=== PATIENT | female | born 1970 | race American Indian/Alaskan Native ===

== ENCOUNTER 2017-10-28 21:12 | Observation (INO) | payer BC ==
[2017-10-29 01:24] VITALS: BMI 21.5
[2017-10-29] MEDS ORDERED: Morphine 4 mg/ml ISec IVP STA ×2 (01:28→04:57)
[2017-10-29] MEDS ORDERED: Sodium Chloride 0.9% 1,000 ML IV STA ×2 (01:28→06:26)
--- NOTE | 2017-10-29 01:31 | ED PDOC ---
Arrival/HPI - General Time Seen by Provider: 10/28/17 23:46 Historian: Patient - History of Present Illness Narrative History of Present Illness (Text): 10/29/17 01:34 A 47 year old female, with no significant past medical history, presents to the emergency department complaining of abdominal pain. Patient reports she currently takes Clonazapam, Vortioxetine, and Seriquel. Patient denies any other complaints at this time. No PMD Past Medical History - Provider Review Nursing Documentation Reviewed: Yes Family/Social History - Physician Review Nursing Documentation Reviewed: Yes Family/Social History: No Known Family HX Allergies/Home Meds Allergies/Adverse Reactions: Allergies No Known Allergies Allergy (Unverified 10/29/17 01:24) Review of Systems - Physician Review All systems were reviewed & negative as marked: Yes - Review of Systems Constitutional: absent: Fevers Gastrointestinal: Abdominal Pain Physical Exam Vital Signs Temp Pulse Resp BP Pulse Ox 10/29/17 04:23 66 18 128/85 100 10/29/17 03:31 98.2 F 71 18 126/72 100 - Systems Exam Head: Present: Atraumatic, Normocephalic Pupils: Present: PERRL Extroacular Muscles: Present: EOMI Conjunctiva: Present: Normal Mouth: Present: Moist Mucous Membranes Neck: Present: Normal Range of Motion Respiratory/Chest: Present: Clear to Auscultation, Good Air Exchange. No: Respiratory Distress, Accessory Muscle Use Cardiovascular: Present: Regular Rate and Rhythm, Normal S1, S2. No: Murmurs Abdomen: Present: Tenderness. No: Distention, Peritoneal Signs Back: Present: Normal Inspection Upper Extremity: Present: Normal Inspection. No: Cyanosis, Edema Lower Extremity: Present: Normal Inspection. No: Edema Neurological: Present: GCS=15, CN II-XII Intact, Speech Normal Skin: Present: Warm, Dry, Normal Color. No: Rashes Psychiatric: Present: Alert, Oriented x 3, Normal Insight, Normal Concentration Medical Decision Making ED Course and Treatment: 10/29/17 01:36 Impression: 47 year old female with abdominal pain. Plan: -- Abd/Pelvis CT -- Labs -- Venous Blood Gas -- Morphine -- Zofran -- Pepcid -- IV Fluids -- Blood Culture -- Urine Culture -- Urinalysis -- Reassess and disposition Progress Notes: 10/29/2017 04:58 Abd/Pelvis CT IMPRESSION: 1. No evidence of bowel obstruction. No pericolonic inflammatory stranding or wall thickening seen. 2. Focally dilated pancreatic duct with atrophy of the pancreatic neck and proximal body. No discrete mass is seen but consider multiphase MRI to further assess if prior studies cannot confirm stability. 3. Indeterminate 1.7 cm right renal lesion. This could also be assessed with pre -and post contrast MRI or ultrasound. 4. Multiple enhancing uterine fibroids, measuring up to 2.4 cm. 5. 9 mm cystic density in the proximal urethra suspicious for a urethral diverticulum. Dictator: Joseph Mott MD - Lab Interpretations Lab Results: 10/29/17 02:25 10/29/17 02:25 Lab Results 10/29/17 02:34: Urine Color Yellow, Urine Appearance Sl cloudy, Urine pH 6.0, Ur Specific [place] >= 1.030, Urine Protein 30 H, Urine Glucose (UA) Negative, Urine Ketones 15 H, Urine Blood Small H, Urine Nitrate Negative, Urine Bilirubin Small H, Urine Urobilinogen 0.2, Ur Leukocyte Esterase Moderate H, Urine RBC 5 - 10, Urine WBC Tntc, Ur Epithelial Cells 3 - 4, Urine Bacteria Many 10/29/17 02:25: Sodium 141, Chloride 104, Potassium 3.8, Carbon Dioxide 26, Anion Gap 14, BUN 10, Creatinine 0.7, Est GFR ( Amer) > 60, Est GFR (Non- Af Amer) > 60, Random Glucose 103, Calcium 10.4, Total Bilirubin 0.6, AST 68 H, ALT 21, Alkaline Phosphatase 68, Total Protein 8.7 H, Albumin 4.8, Globulin 3.9 , Albumin/Globulin Ratio 1.2, Lipase 36 10/29/17 02:25: pO2 42, VBG pH 7.33, VBG pCO2 55.0, VBG HCO3 29.0 H, VBG Total CO2 30.7 H, VBG O2 Sat (Calc) 72.4 H, VBG Base Excess 1.9, VBG Potassium 3.6, Sodium 140.0, Chloride 107.0, Glucose 102, Lactate 1.0, FiO2 21.0, Venous Blood Potassium 3.6 10/29/17 02:25: PT 11.7, INR 1.03 10/29/17 02:25: WBC 6.8, RBC 3.98, Hgb 10.8 L, Hct 33.6 L, MCV 84.4, MCH 27.1, MCHC 32.1, RDW 16.7 H, Plt Count 277, MPV 8.5, Gran % 56.2, Lymph % (Auto) 36.4 H, [place] % (Auto) 6.8 H, Eos % (Auto) 0.3 L, Baso % (Auto) 0.3, Gran # 3.79, Lymph # (Auto) 2.5, [place] # (Auto) 0.5, Eos # (Auto) 0.0, Baso # (Auto) 0.02 I have reviewed the lab results: Yes - RAD Interpretation Radiology Orders: 10/29/17 01:28 ABD PELVIS PO & IV CONTRAST [CT] Stat - Medication Orders Current Medication Orders: Ceftriaxone Sodium (Rocephin 1 Gram Ivpb) 1 gm in 100 mls @ 200 mls/hr IVPB STAT STA PRN Reason: Protocol Stop: 10/29/17 05:26 Discontinued Medications Sodium Chloride (Sodium Chloride 0.9%) 1,000 mls @ 999 mls/hr IV .Q1H1M STA Stop: 10/29/17 02:28 Last Admin: 10/29/17 02:25 Dose: 999 mls/hr eMAR Start Stop Document 10/29/17 02:25 RD (Rec: 10/29/17 04:24 RD [id number]) Intravenous Solution Start Date 10/29/17 Start Time 02:25 End Date 10/29/17 End time 03:25 Total Infusion Time 60 Famotidine (Pepcid 20mg/50ml Premix) 20 mg in 50 mls @ 100 mls/hr IVPB STAT STA Stop: 10/29/17 02:01 Last Admin: 10/29/17 03:32 Dose: 100 mls/hr eMAR Start Stop Document 10/29/17 03:32 RD (Rec: 10/29/17 04:26 RD [id number]) Intravenous Solution Start Date 10/29/17 Start Time 03:32 End Date 10/29/17 End time 04:02 Total Infusion Time 30 Morphine Sulfate (Morphine) 4 mg IVP STAT STA Stop: 10/29/17 01:29 Last Admin: 10/29/17 02:30 Dose: 4 mg MAR Pain Assessment Document 10/29/17 02:30 RD (Rec: 10/29/17 04:25 RD [id number]) Pain Reassessment Is this a pain reassessment? No Sleep Is patient sleeping during reassessment? No Presence of Pain Presence of Pain Yes IVP Administration Document 10/29/17 02:30 RD (Rec: 10/29/17 04:25 RD [id number]) Charges for Administration # of IVP Administrations 1 Morphine Sulfate (Morphine) 4 mg IVP STAT STA Stop: 10/29/17 04:58 Ondansetron HCl (Zofran Inj) 4 mg IVP STAT STA Stop: 10/29/17 01:29 Last Admin: 10/29/17 02:25 Dose: 4 mg IVP Administration Document 10/29/17 02:25 RD (Rec: 10/29/17 04:25 RD [id number]) Charges for Administration # of IVP Administrations 1 Ondansetron HCl (Zofran Inj) 4 mg IVP STAT STA Stop: 10/29/17 04:58 - Scribe Statement The provider has reviewed the documentation as recorded by the Chris Blankenship Provider Scribe Provider Scribe Attestation: All medical record entries made by the Tonnyibamberly were at my direction and personally dictated by me. I have reviewed the chart and agree that the record accurately reflects my personal performance of the history, physical exam, medical decision making, and the department course for this patient. I have also personally directed, reviewed, and agree with the discharge instructions and disposition. Disposition/Present on Arrival - Present on Arrival Any Indicators Present on Arrival: No History of DVT/PE: No History of Uncontrolled Diabetes: No Urinary Catheter: No History of Decub. Ulcer: No History Surgical Site Infection Following: None - Disposition Have Diagnosis and Disposition been Completed?: Yes Diagnosis: Intractable abdominal pain, Pancreatic abnormality, UTI (urinary tract infection) Disposition: HOSPITALIZED Disposition Time: 05:26 Patient Plan: Admission Condition: FAIR Referrals: Gladys Ro MD [Primary Care Provider] - Follow up with primary
[2017-10-29] MEDS ORDERED: Famotidine 20mg/50ml 20 MG/50 ML BAG IVPB STA (01:32)
[2017-10-29] MEDS ORDERED: Iohexol 240 (50 ml) ONE (02:04)
[2017-10-29 02:47] LABS: VENOUS BLOOD GAS BASE EXCESS 1.9 mmol/L (0.0-2.0); VENOUS BLOOD GAS PO2 42 mm/Hg (30-55); VENOUS BLOOD PH 7.33 (7.32-7.43)
[2017-10-29 02:49] LABS: BASO # 0.02 K/mm3 (0.0-2.0); BASO % 0.3 % (0.0-3.0); EOS % 0.3 % (1.5-5.0); GRAN # 3.79 (1.4-6.5); GRAN % 56.2 % (50.0-68.0); HEMOGLOBIN 10.8 g/dL (12.0-16.0); INR 1.03; LYMPH # 2.5 (1.2-3.4); LYMPH % 36.4 % (22.0-35.0); MEAN CELL VOLUME 84.4 fl (80.0-105.0); MEAN CORPUSCULAR HEMOGLOBIN 27.1 pg (25.0-35.0); MEAN CORPUSCULAR HGB CONC 32.1 g/dl (31.0-37.0); MEAN PLATELET VOLUME 8.5 fl (7.0-11.0); MONO # 0.5 (0.1-0.6); MONO % 6.8 % (1.0-6.0); PROTHROMBIN TIME 11.7 SECONDS (9.4-12.5); RBC 3.98 10^6/uL (3.5-6.1); RED CELL DISTRIBUTION WIDTH 16.7 % (11.5-14.5); WHITE BLOOD COUNT 6.8 10^3/ul (4.5-11.0)
[2017-10-29 03:04] LABS: URINE BILIRUBIN SMALL (NEGATIVE); URINE BLOOD SMALL (NEGATIVE); URINE GLUCOSE (UA) NEGATIVE (NEGATIVE); URINE LEUKOCYTE ESTERASE MODERATE Leu/uL (NEGATIVE); URINE PROTEIN 30 mg/dL (<30 mg/dL); URINE UROBILINOGEN 0.2 E.U./dL (<1 E.U./dL)
[2017-10-29 03:09] LABS: URINE APPEARANCE SL CLOUDY (CLEAR); URINE COLOR YELLOW (YELLOW)
[2017-10-29 03:14] LABS: ALB/GLOB RATIO 1.2 (1.1-1.8); ALBUMIN 4.8 g/dL (3.0-4.8); BLOOD UREA NITROGEN 10 mg/dL (7-21); CALCIUM 10.4 mg/dL (8.4-10.5); GFR NON-AFRICAN AMERICAN > 60; LIPASE 36 U/L (23-300)
[2017-10-29 03:19] LABS: ALT/SGPT 21 U/L (7-56); AST/SGOT 68 U/L (14-36)
[2017-10-29 03:22] LABS: URINE BACTERIA MANY (NEG); URINE WBC TNTC /hpf (0-6)
[2017-10-29] MEDS ORDERED: Iohexol 300 100 ML IJ ONE (03:49)
[2017-10-29] MEDS ORDERED: Iohexol 350 MG/100 ML VIAL ONE (03:50)
[2017-10-29] MEDS ORDERED: cefTRIAXone 1 gm 1 GM/100 ML BAG IVPB STA (04:57)
[2017-10-29] MEDS: Sodium Chloride 0.9% 1,000 ML IV SCH ×2 (07:30→21:32)
--- NOTE | 2017-10-29 07:43 | CP.PCM.HP ---
<Dany Mcclulough - Last Filed: 10/29/17 07:52> History of Present Illness - History of Present Illness History of Present Illness: Dany Jamel DO PGY-1, H&P for hospitalist CC: abdominal pain This is a 47 year old AA female with PMH of hospitalization for ulcer in 1999, GERD, depression, iron deficiency anemia who presents with a 3 day history of abdominal pain with nausea, vomiting and diarrhea. Pt is a poor historian, and supplemental information is obtained from her sister Alfie, who is at bedside. Pt describes the abdominal pain as sharp, epigastric abdominal pain that radiates to the back, alleviated by leaning forward, worsened by laying on her back. Pt describes a 1 month history of diarrhea, 6 episodes of loose bowel movements per day, that started out as oily, light colored stool, nonbloody. Pt states that her bowel movements changes to dark, colored stools for the past 3 days. Pt was started on an iron pill by her PMD 2 weeks ago. Pt had 1 episode of vomiting yesterday (10/28/17), which was nonbloody. Pt states that she has had weakness and dizziness for the past month that has progressively worsened over the past 3 days. Symptoms are not associated with any foods. Pt denies LOC , falls, fever, chills, chest pain, dysuria, hematuria, shortness of breath, paresthesias, recent travel, recent illness, sick contacts. Pt endorses losing approximately 40 pounds since her fibroidectomy in september 2016. A 12-point ROS was reviewed and is otherwise unremarkable. PMD: Jia PMH: hospitalization for ulcer in 1999, GERD, depression, iron deficiency anemia PSH: Fibroids removed 09/2016 which required blood transfusion Meds: iron pills, multivitamins, Trintellix 10 mg daily, Seroquel 100 QHS, Prilosec OTC Allx: NKDA; abdominal pain from motrin FHx: Mother with HTN, and iron deficiency anemia, sister with iron deficiency anemia and atrial fibrillation; no history of cancer Social Hx: (+) drinks 2-3 22 ounce beers three times a week, (+) smokes 1-2 black and mild per day for the past 5 years, (-) illicit drug use Medical Claims Assistant: her menstrual period ended last week Present on Admission - Present on Admission Any Indicators Present on Admission: No Review of Systems - Review of Systems All systems: reviewed and no additional remarkable complaints except (as per HPI ) Past Patient History - Past Social History Smoking Status: Light Smoker < 10 Cigarettes Daily - PSYCHIATRIC Hx Anxiety: Yes Hx Bipolar Disorder: Yes Hx Depression: Yes Hx Substance Use: No Meds Allergies/Adverse Reactions: Allergies Allergy/AdvReac Type Severity Reaction Status Date / Time No Known Allergies Allergy Unverified 10/29/17 01:24 Physical Exam - Constitutional Appears: Non-toxic, No Acute Distress - Head Exam Head Exam: ATRAUMATIC, NORMAL INSPECTION - Eye Exam Eye Exam: EOMI, PERRL Additional comments: (+) conjunctival pallor - ENT Exam ENT Exam: Mucous Membranes Dry - Neck Exam Neck exam: Positive for: Normal Inspection - Respiratory Exam Respiratory Exam: Clear to Auscultation Bilateral, NORMAL BREATHING PATTERN. absent: Rales, Rhonchi, Wheezes - Cardiovascular Exam Cardiovascular Exam: REGULAR RHYTHM, +S1, +S2 - GI/Abdominal Exam GI & Abdominal Exam: Guarding (involuntary), Normal Bowel Sounds, Soft, Tenderness ((+) moderate epigastric tenderness). absent: Distended, Firm, Hernia, Mass, Pulsatile Mass, Rebound Additional comments: (-) murphys sign - Rectal Exam Rectal Exam: Deferred - Extremities Exam Extremities exam: Positive for: normal capillary refill, normal inspection, pedal pulses present. Negative for: calf tenderness, tenderness - Back Exam Back exam: paraspinal tenderness (lumbar paravertebral hypertonicity with tenderness). absent: rash noted, vertebral tenderness - Neurological Exam Neurological exam: Alert, Oriented x3 - Psychiatric Exam Psychiatric exam: Normal Affect, Normal Mood - Skin Skin Exam: Normal Color, Warm Results - Vital Signs Recent Vital Signs: Last Vital Signs Temp 98.2 F 10/29/17 03:31 Pulse 66 10/29/17 04:23 Resp 18 10/29/17 04:23 BP 128/85 10/29/17 04:23 Pulse Ox 100 10/29/17 04:23 - Labs Result Diagrams: 10/29/17 02:25 10/29/17 02:25 Labs: Laboratory Results - last 24 hr 10/29/17 06:00 Blood Type O POSITIVE Antibody Screen Negative BBK History Checked No verified bt Assessment & Plan - Assessment and Plan (Free Text) Assessment: This is a 47 year old AA female with PMH of hospitalization for ulcer in 1999, GERD, depression, iron deficiency anemia who presents with a 3 day history of abdominal pain with nausea, vomiting and diarrhea. Plan: Abdominal pain with diarrhea; possibly due to pancreatic insufficiency secondary to chronic pancreatitis - Abdominal CT shows Focally dilated pancreatic duct with atrophy of the pancreatic neck and proximal body. No discrete mass is seen. - will obtain MRCP for better visualization - Zofran PRN for nausea - Toradol PRN for pain - will obtain stool FOBT, stool culture, stool O and P, stool fat, stool leukocytes, stool lactoferrin - NPO - NS IVF at 100 mL/hr - gastroenterology consulted, recs appreciated UTI - UTI on UA - f/u urine culture and sensitivity - Rocephin Right renal lesion noted on CT scan - Abdominal CT shows Indeterminate 1.7 cm right renal lesion. 9 mm cystic density in the proximal urethra suspicious for a urethral diverticulum. - f/u bilateral renal US Hx of iron deficiency anemia - Normocytic anemia at 10.8 on admission - continue Iron PO - will obtain serum iron, ferritin, folate, TIBC, vitamin B12 - f/u CBC in am Depression - continue home seroquel PPX/Diet - protonix for GI, SCDs for DVT - NPO Case was reviewed and discussed with attending physician, Dr. Chavira <Dana Chavira - Last Filed: 10/29/17 18:59> Results - Vital Signs Recent Vital Signs: Last Vital Signs Temp 98 F 10/29/17 16:40 Pulse 69 10/29/17 16:40 Resp 18 10/29/17 16:40 BP 110/64 10/29/17 16:40 Pulse Ox 100 10/29/17 16:40 - Labs Result Diagrams: 10/29/17 02:25 10/29/17 02:25 Labs: Laboratory Results - last 24 hr 10/29/17 10/29/17 10/29/17 06:00 08:45 08:45 Iron TIBC % Saturation Ferritin 13.0 Vitamin B12 847 Folate > 20.0 Blood Type O POSITIVE Blood Type Confirm O POSITIVE Antibody Screen Negative BBK History Checked No verified bt 10/29/17 08:45 Iron 35 L TIBC 373 % Saturation 9 L Ferritin Vitamin B12 Folate Blood Type Blood Type Confirm Antibody Screen BBK History Checked Attending/Attestation - Attestation I have personally seen and examined this patient.: Yes I have fully participated in the care of the patient.: Yes I have reviewed all pertinent clinical information: Yes
[2017-10-29 09:06] LABS: IRON 35 ug/dL (45-180)
[2017-10-29 09:15] LABS: % IRON SATURATION 9 % (20-55); TOTAL IRON BINDING CAPACITY 373 ug/dL (265-497)
[2017-10-29] MEDS: Ferrous Sulfate 300 mg/5 mL Liq UD PO SCH ×3 (09:21→17:33)
[2017-10-29] MEDS ORDERED: Pneumococcal 23-Valent Vaccine IM ONE (13:46)
--- NOTE | 2017-10-29 15:18 | CT ---
Date of service: 10/29/2017 PROCEDURE: CT Abdomen and Pelvis with contrast HISTORY: abdominal pain and black stools COMPARISON: None. TECHNIQUE: Contrast dose: 100 mL Omnipaque 350 Radiation dose: Total exam DLP = 263.20 mGy-cm. This CT exam was performed using one or more of the following dose reduction techniques: Automated exposure control, adjustment of the mA and/or kV according to patient size, and/or use of iterative reconstruction technique. FINDINGS: LOWER THORAX: Unremarkable. LIVER: Unremarkable. No gross lesion or ductal dilatation. GALLBLADDER AND BILE DUCTS: Unremarkable. PANCREAS: Pancreas atrophic. There is irregular multifocal dilatation of the pancreatic duct in the body and tail of the pancreas. There is no mass identified. There is no evidence of pancreatitis. SPLEEN: Unremarkable. ADRENALS: Unremarkable. No mass. KIDNEYS AND URETERS: Low-density right renal mass, 1.9 cm. This measures approximately 44 Hounsfield units and correlation with ultrasound examination is suggested. No left renal mass. No renal calculus or hydronephrosis. VASCULATURE: Unremarkable. No aortic aneurysm. BOWEL: Questionable short segment mural thickening in the ascending colon (series 3, image 111 and series 601, image 70). Consider further evaluation with colonoscopy. Evaluation is limited due to the lack of oral contrast within the colon at the time of the examination and lack of adequate distention. No other abnormal bowel loops are appreciated. No evidence of bowel obstruction. APPENDIX: Not identified. No secondary findings. PERITONEUM: Unremarkable. No free fluid. No free air. LYMPH NODES: Unremarkable. No enlarged lymph nodes. BLADDER: Poorly distended. Questionable proximal urethral diverticulum, approximately 10 mm diameter. REPRODUCTIVE: Multi fibroid uterus. Right adnexal mass, 4.4 x 2.7 by 2.9 cm. Recommend correlation with pelvic ultrasound examination. Possible pedunculated uterine fibroid but must exclude ovarian neoplasm. BONES: No acute fracture. OTHER FINDINGS: None. IMPRESSION: Questionable focal mural thickening in the ascending colon. Rule out neoplasm. Further evaluation with colonoscopy is advised. 1.9 cm low-density right renal mass. Questionable complex renal cyst. Correlate with renal ultrasound. Multi fibroid uterus. 4.4 cm right adnexal mass. Possible pedunculated uterine fibroid. Correlate with transvaginal pelvic ultrasound examination. Possible 10 mm proximal urethral diverticulum. Atrophic pancreas. Irregular multifocal pancreatic ductal dilatation. No mass. Consider further evaluation with gadolinium enhanced magnetic resonance imaging or multiphasic contrast-enhanced CT utilizing pancreatic protocol. The preliminary findings for this examination were reported by [facility] at 4:58 a.m. on 10/29/2017. There is concurrence of this report with the preliminary findings.
--- NOTE | 2017-10-29 15:56 | CARD ---
APPROVED REPORT Date of service: 10/29/2017 EKG Measurement Heart [id number] <Conclusion> Poor data quality, interpretation may be adversely affected Normal sinus rhythm Normal ECG
[2017-10-29 17:25] LABS: FOLATE > 20.0 ng/mL
[2017-10-29] MEDS ORDERED: Gadodiamide 287 MG/ML VIAL (15ML) IV ONE (18:10)
[2017-10-29] MEDS ORDERED: Morphine 2 mg/ml ISec IVP ONE (23:38)
--- NOTE | 2017-10-30 04:07 | CON ---
DATE: 10/29/2017 GASTROENTEROLOGY CONSULTATION REQUESTING PHYSICIAN: Poornima Harrison MD. REASON FOR CONSULTATION: I have been asked to see this 47-year-old -[place] female with a history of chronic anemia, uterine fibroids, depression, GERD, and peptic ulcer disease, who comes to the hospital with several days of epigastric pain associated with intermittent nausea, vomiting, and diarrhea. The patient states that she has had the pain for approximately 1 month, but the pain has become increasingly severe. She also states that she has had several bowel movements per day for the last week. It is nonbloody. The patient describes the pain as sharp. The patient also states that she has lost approximately 30 pounds over the last 6 months. The patient states that her weight loss started after she had a myomectomy. She denies any fevers, chills, rectal bleeding, melena, hematemesis, recent travel, or ingestion of any unusual foods. PAST MEDICAL HISTORY: As above. Again, she has a history of iron-deficiency anemia, uterine fibroids, depression, GERD, peptic ulcer disease. PAST SURGICAL HISTORY: Notable for myomectomy in 09/2016. SOCIAL HISTORY: She smokes 3 to 4 cigarettes a day. She consumes several cans of beer on weekends. She denies any illicit drug use. FAMILY HISTORY: Noncontributory. REVIEW OF SYSTEMS: A 14-point review of systems is notable for abdominal pain, nausea, vomiting, diarrhea, and weight loss. PHYSICAL EXAMINATION: GENERAL: Middle-aged -[place] female lying in bed, in no acute distress. VITAL SIGNS: Reveal temperature of 98, blood pressure 106/82, heart rate of 76. Her weight is 154 pounds. HEENT: Reveals sclerae to be white. Conjunctivae pink. NECK: Supple. CHEST: Reveals lungs to be clear. HEART: Reveals a regular rate and rhythm. ABDOMEN: Soft, mild epigastric tenderness. No rebound or guarding. EXTREMITIES: Show no edema. LABORATORY DATA: Reveals white blood cell count 6.8, hemoglobin 10.8. Chemistries reveal AST 68, ALT 21, total protein 8.7, lipase is not available. Iron saturation is 9. Coags are normal. CBC reveals white blood cell count 6.8, hemoglobin 10.8, platelet count of 277,000. CT scan of the abdomen and pelvis reveals uterine myomas, atrophy of the pancreatic neck and body with focal dilatation of the pancreatic duct. No obvious masses seen. IMPRESSION: A 47-year-old female with abdominal pain, nausea, vomiting, diarrhea, weight loss, atrophic pancreas with mild ductal dilatation. The patient may have pancreatic insufficiency as a cause of her diarrhea. Other etiologies include peptic ulcer disease, infectious diarrhea. RECOMMENDATIONS: 1. Check stool for C and S, O and P, and fecal fat. 2. Agree with obtaining an MRCP of the pancreas to rule out any obvious pancreatic masses and to further delineate the anatomy of the pancreatic duct. 3. The patient will need elective endoscopy and colonoscopy for evaluation of anemia and weight loss. Chris Flores MD
[2017-10-30] MEDS: Sodium Chloride 0.9% 1,000 ML IV SCH ×2 (04:39→23:23)
[2017-10-30] MEDS ORDERED: Pantoprazole 40 mg EC Tab PO SCH (06:00)
[2017-10-30 08:09] LABS: BASO # 0.02 K/mm3 (0.0-2.0); BASO % 0.5 % (0.0-3.0); EOS # 0.1 (0.0-0.7); EOS % 1.1 % (1.5-5.0); GRAN # 1.96 (1.4-6.5); HEMOGLOBIN 8.6 g/dL (12.0-16.0); LYMPH % 45.6 % (22.0-35.0); MEAN CELL VOLUME 84.7 fl (80.0-105.0); MEAN CORPUSCULAR HEMOGLOBIN 26.9 pg (25.0-35.0); MEAN CORPUSCULAR HGB CONC 31.7 g/dl (31.0-37.0); MEAN PLATELET VOLUME 8.7 fl (7.0-11.0); MONO # 0.3 (0.1-0.6); MONO % 7.8 % (1.0-6.0); RBC 3.2 10^6/uL (3.5-6.1); RED CELL DISTRIBUTION WIDTH 16.4 % (11.5-14.5); WHITE BLOOD COUNT 4.4 10^3/ul (4.5-11.0)
[2017-10-30 08:34] LABS: ALB/GLOB RATIO 1.1 (1.1-1.8); ALT/SGPT 23 U/L (7-56); AST/SGOT 38 U/L (14-36); BLOOD UREA NITROGEN 8 mg/dL (7-21); GFR NON-AFRICAN AMERICAN > 60
[2017-10-30] MEDS: Morphine 2 mg/ml ISec IVP PRN ×3 (11:22→23:32)
[2017-10-30] MEDS: cefTRIAXone 1 gm 1 GM/100 ML BAG IVPB SCH (11:22)
[2017-10-30] MEDS: Ferrous Sulfate 300 mg/5 mL Liq UD PO SCH ×3 (11:23→17:51)
--- NOTE | 2017-10-30 15:14 | CP.PCM.PN ---
Subjective - Date & Time of Evaluation Date of Evaluation: 10/30/17 Time of Evaluation: 06:00 - Subjective Subjective: Pt seen and examined, denies diarrhea, reports constipation and abdominal pain. Objective - Vital Signs/Intake and Output Vital Signs (last 24 hours): Temp Pulse Resp BP Pulse Ox 97.8 F 61 20 100/63 100 10/30/17 09:01 10/30/17 09:01 10/30/17 09:01 10/30/17 09:01 10/30/17 09:01 Intake and Output: 10/30/17 10/30/17 06:59 18:59 Intake Total 1120 Balance 1120 - Medications Medications: Current Medications Ferrous Sulfate (Feosol Liq) 300 mg PO TID [facility] Last Admin: 10/30/17 11:23 Dose: 300 mg Ceftriaxone Sodium (Rocephin 1 Gram Ivpb) 1 gm in 100 mls @ 100 mls/hr IVPB DAILY [facility] PRN Reason: Protocol Last Admin: 10/30/17 11:22 Dose: 100 mls/hr Sodium Chloride (Sodium Chloride 0.9%) 1,000 mls @ 100 mls/hr IV .Q10H [facility] Last Admin: 10/30/17 04:39 Dose: Not Given Morphine Sulfate (Morphine) 1 mg IVP Q6 PRN PRN Reason: Pain, moderate (4-7) Last Admin: 10/30/17 11:22 Dose: 1 mg Ondansetron HCl (Zofran Inj) 4 mg IVP Q4H PRN PRN Reason: Nausea/Vomiting Pantoprazole Sodium (Protonix Inj) 40 mg IVP DAILY [facility] Last Admin: 10/30/17 11:22 Dose: 40 mg Quetiapine Fumarate (Seroquel) 100 mg PO HS [facility] PRN Reason: Protocol Last Admin: 10/29/17 22:20 Dose: Not Given Sucralfate (Carafate Tab) 1 gm PO 0600,1600 [facility] Last Admin: 10/30/17 05:13 Dose: 1 gm - Labs Labs: 10/30/17 06:30 10/30/17 06:30 PT 11.7 SECONDS (9.4-12.5) 10/29/17 02:25 INR 1.03 10/29/17 02:25 APTT 26.8 Seconds (25.1-36.5) 10/30/17 06:30 - Head Exam Head Exam: ATRAUMATIC, NORMOCEPHALIC - ENT Exam ENT Exam: Mucous Membranes Moist - Respiratory Exam Respiratory Exam: Clear to Ausculation Bilateral, NORMAL BREATHING PATTERN - Cardiovascular Exam Cardiovascular Exam: RRR, +S1, +S2 - GI/Abdominal Exam GI & Abdominal Exam: Tenderness, Normal Bowel Sounds - Neurological Exam Neurological Exam: Alert, Awake, Oriented x3 - Skin Skin Exam: Dry, Normal Color, Warm Assessment and Plan - Assessment and Plan (Free Text) Assessment: This is a 47 year old AA female with PMH of hospitalization for ulcer in 1999, GERD, depression, iron deficiency anemia who presents with a 3 day history of abdominal pain with nausea, vomiting and diarrhea. Plan: Abdominal pain - Abdominal CT shows Focally dilated pancreatic duct with atrophy of the pancreatic neck and proximal body. No discrete mass is seen. - MRCP: official read pending - Zofran PRN - Toradol PRN - NS IVF at 100 mL/hr - GI consulted, pt schedule an out pt endoscopy and colonoscopy - morphine 1mg Q6 UTI - f/u urine culture and sensitivity - Rocephin 1 gram daily Right renal lesion noted on CT scan - Abdominal CT: 1.7 cm right renal lesion. 9 mm cystic density in the proximal urethra suspicious for a urethral diverticulum. - bilateral renal US: pending official read Hx of iron deficiency anemia - Normocytic anemia at 10.8 on admission - continue Iron PO - serum iron 35 - ferritin 13 - folate >20 - TIBC 373 - vitamin B12 847 Depression - seroquel Ppx/Diet - protonix - SCDs - Liquid diet Pt seen, examined, assessment and plan discussed with Dr Harrison. Jaime Espino PGY1 Internal Medicine Resident
--- NOTE | 2017-10-30 15:58 | MRI ---
Date of service: 10/29/2017 PROCEDURE: Magnetic Resonance Cholangiopancreatography HISTORY: COMPARISON: None available. TECHNIQUE: Multiplanar, multisequence MR images of the abdomen were obtained, including heavily T2 weighted MRCP images of the biliary system. Rotating maximum intensity projection images of the biliary system were generated. FINDINGS: MRCP: The common bile duct is of a normal caliber. No evidence of choledocholithiasis. No intrahepatic biliary ductal dilatation. LIVER: Normal size, contour and signal intensity. No evidence of significant steatosis. 3 mm high T2 signal mass in the right hepatic lobe common nonspecific. This corresponds to a tiny low density lesion on CT examination of 10/29/2017. GALLBLADDER: Unremarkable. SPLEEN: Unremarkable. PANCREAS: Severely atrophic pancreas. A small pancreatic head is identified. There is no pancreatic mass. The body and tail of pancreas are poorly discernible on this examination. There is no evidence of pancreatic ductal dilatation. There is no peripancreatic fluid or inflammatory change appreciated. ADRENALS: Unremarkable. KIDNEYS: 1.9 cm mid right renal mass, consistent with cyst. AORTA: No aneurysm. ASCITES: None. OTHER FINDINGS: None. IMPRESSION: Severe atrophy of pancreatic body and tail. No pancreatic ductal dilatation appreciated. No enhancing pancreatic mass. No other significant abnormality.
--- NOTE | 2017-10-30 17:54 | US ---
Date of service: 10/29/2017 PROCEDURE: Ultrasound of the Kidneys HISTORY: bilateral renal US; right renal lesion COMPARISON: None available. TECHNIQUE: Sonogram of the kidneys. FINDINGS: RIGHT KIDNEY: Measures: 10.3 cm. Normal in size, contour and echogenicity. No calculus or hydronephrosis. Mid renal parapelvic cyst, 1.6 x 2.0 x 2.0 cm. No solid mass. LEFT KIDNEY: Measures: 11.3 cm. Normal in size, contour and echogenicity. No stone, solid mass lesion or hydronephrosis visualized. OTHER FINDINGS: None. IMPRESSION: 2 cm right parapelvic renal cyst. Otherwise unremarkable.
[2017-10-31 07:42] VITALS: BP 105/66; PULSE 67; RESP 18; TEMP 98.3; O2SAT 99
[2017-10-31] MEDS: cefTRIAXone 1 gm 1 GM/100 ML BAG IVPB SCH (09:10)
[2017-10-31] MEDS: Ferrous Sulfate 300 mg/5 mL Liq UD PO SCH ×2 (09:10→14:00)
[2017-10-31] MEDS: Morphine 2 mg/ml ISec IVP PRN ×2 (09:19→15:45)
[2017-10-31 09:23] LABS: HEMOGLOBIN 10.4 g/dL (12.0-16.0); MEAN CELL VOLUME 84.3 fl (80.0-105.0); MEAN CORPUSCULAR HEMOGLOBIN 27.3 pg (25.0-35.0); MEAN CORPUSCULAR HGB CONC 32.4 g/dl (31.0-37.0); MEAN PLATELET VOLUME 8.3 fl (7.0-11.0); RBC 3.81 10^6/uL (3.5-6.1); RED CELL DISTRIBUTION WIDTH 16.2 % (11.5-14.5); WHITE BLOOD COUNT 3.9 10^3/ul (4.5-11.0)
[2017-10-31 09:40] LABS: BLOOD UREA NITROGEN 3 mg/dL (7-21); CALCIUM 9.7 mg/dL (8.4-10.5); GFR NON-AFRICAN AMERICAN > 60
[2017-10-31] MEDS: Sodium Chloride 0.9% 1,000 ML IV SCH (11:07)
--- NOTE | 2017-10-31 13:35 | PN ---
DATE: 10/31/2017 SUBJECTIVE: The patient is sitting up in bed, comfortable. Her abdominal pain has resolved. She has not had any further diarrhea. MRCP revealed an atrophic pancreas without any evidence of pancreatic mass. No pancreatic duct dilatation was seen. Common bile duct was normal. PHYSICAL EXAMINATION: VITAL SIGNS: Reveal temperature of 97.9, blood pressure 166/89, heart rate of 59. HEENT: Reveals sclerae to be white. Conjunctivae pale. NECK: Supple. CHEST: Reveals lungs to be clear. HEART: Reveals regular rate and rhythm. ABDOMEN: Soft, nontender. No mass. EXTREMITIES: Show no edema. LABORATORY DATA: Reveal hemoglobin 10.4, white blood cell count 3.9, BUN 3, creatinine 0.7. IMPRESSION: A 47-year-old female with chronic anemia, probably iron deficient, multifactorial in etiology including chronic gynecologic blood loss from fibroids. CT scan of the abdomen and pelvis did not show any lesions throughout the GI tract. MRCP did not reveal pancreatic duct dilatation as was suggested on CAT scan. Stool for fecal leukocytes has returned negative. Her diarrhea is improved. RECOMMENDATIONS: The patient can be discharged home. She has been instructed to resume her iron. She can follow up with me for elective endoscopy and colonoscopy to complete the workup of the anemia. Due to scheduling in endoscopy, I cannot do a endoscopy and colonoscopy in the hospital until Tuesday. The patient does not have any signs of active GI bleeding. She will follow up with me in the office. Chris Flores MD
--- NOTE | 2017-10-31 17:08 | CP.PCM.DIS ---
<Carina Salazar - Last Filed: 10/31/17 17:39> Provider - Provider Date of Admission: 10/29/17 05:22 Attending physician: Poornima Harrison MD Primary care physician: Gladys Ro Consults: GI Time Spent in preparation of Discharge (in minutes): 70 Hospital Course - Lab Results Lab Results: Micro Results 10/30/17 17:28 Stool Ova and Parasite Concentrate Exam - Final 10/29/17 09:10 Blood-Venous Blood Culture - Preliminary NO GROWTH AFTER 48 HOURS 10/29/17 08:45 Blood-Venous Blood Culture - Preliminary NO GROWTH AFTER 48 HOURS Most Recent Lab Values WBC 3.9 10^3/ul (4.5-11.0) L 10/31/17 09:00 RBC 3.81 10^6/uL (3.5-6.1) 10/31/17 09:00 Hgb 10.4 g/dL (12.0-16.0) L 10/31/17 09:00 Hct 32.1 % (36.0-48.0) L 10/31/17 09:00 MCV 84.3 fl (80.0-105.0) 10/31/17 09:00 MCH 27.3 pg (25.0-35.0) 10/31/17 09:00 MCHC 32.4 g/dl (31.0-37.0) 10/31/17 09:00 RDW 16.2 % (11.5-14.5) H 10/31/17 09:00 Plt Count 283 10^3/uL (120.0-450.0) 10/31/17 09:00 MPV 8.3 fl (7.0-11.0) 10/31/17 09:00 Gran % 45.0 % (50.0-68.0) L 10/30/17 06:30 Lymph % (Auto) 45.6 % (22.0-35.0) H 10/30/17 06:30 [place] % (Auto) 7.8 % (1.0-6.0) H 10/30/17 06:30 Eos % (Auto) 1.1 % (1.5-5.0) L 10/30/17 06:30 Baso % (Auto) 0.5 % (0.0-3.0) 10/30/17 06:30 Gran # 1.96 (1.4-6.5) 10/30/17 06:30 Lymph # (Auto) 2.0 (1.2-3.4) 10/30/17 06:30 [place] # (Auto) 0.3 (0.1-0.6) 10/30/17 06:30 Eos # (Auto) 0.1 (0.0-0.7) 10/30/17 06:30 Baso # (Auto) 0.02 K/mm3 (0.0-2.0) 10/30/17 06:30 PT 11.7 SECONDS (9.4-12.5) 10/29/17 02:25 INR 1.03 10/29/17 02:25 APTT 26.8 Seconds (25.1-36.5) 10/30/17 06:30 pO2 42 mm/Hg (30-55) 10/29/17 02:25 VBG pH 7.33 (7.32-7.43) 10/29/17 02:25 VBG pCO2 55.0 (40-60) 10/29/17 02:25 VBG HCO3 29.0 mmol/l (21-28) H 10/29/17 02:25 VBG Total CO2 30.7 mmol.L (22-28) H 10/29/17 02:25 VBG O2 Sat (Calc) 72.4 % (40-65) H 10/29/17 02:25 VBG Base Excess 1.9 mmol/L (0.0-2.0) 10/29/17 02:25 VBG Potassium 3.6 mmol/L (3.6-5.2) 10/29/17 02:25 Sodium 140.0 mmol/L (132-148) 10/29/17 02:25 Chloride 107.0 mmol/L (98-107) 10/29/17 02:25 Glucose 102 mg/dl (65-105) 10/29/17 02:25 Lactate 1.0 mmol/L (0.7-2.1) 10/29/17 02:25 FiO2 21.0 % 10/29/17 02:25 Sodium 140 mmol/L (132-148) 10/31/17 09:00 Potassium 4.0 mmol/L (3.6-5.0) 10/31/17 09:00 Chloride 110 mmol/L (98-107) H 10/31/17 09:00 Carbon Dioxide 24 mmol/L (21-33) 10/31/17 09:00 Anion Gap 10 (10-20) 10/31/17 09:00 BUN 3 mg/dL (7-21) L 10/31/17 09:00 Creatinine 0.7 mg/dl (0.7-1.2) 10/31/17 09:00 Est GFR ( Amer) > 60 10/31/17 09:00 Est GFR (Non-Af Amer) > 60 10/31/17 09:00 Random Glucose 95 mg/dL (70-110) 10/31/17 09:00 Calcium 9.7 mg/dL (8.4-10.5) 10/31/17 09:00 Phosphorus 4.5 mg/dL (2.5-4.5) 10/30/17 06:30 Magnesium 1.9 mg/dL (1.7-2.2) 10/30/17 06:30 Iron 35 ug/dL (45-180) L 10/29/17 08:45 TIBC 373 ug/dL (265-497) 10/29/17 08:45 % Saturation 9 % (20-55) L 10/29/17 08:45 Ferritin 13.0 ng/mL 10/29/17 08:45 Total Bilirubin < 0.1 mg/dL (0.2-1.3) L 10/30/17 06:30 AST 38 U/L (14-36) H D 10/30/17 06:30 ALT 23 U/L (7-56) 10/30/17 06:30 Alkaline Phosphatase 47 U/L (38-126) 10/30/17 06:30 Total Protein 5.7 g/dL (5.8-8.3) L 10/30/17 06:30 Albumin 3.0 g/dL (3.0-4.8) 10/30/17 06:30 Globulin 2.8 gm/dL 10/30/17 06:30 Albumin/Globulin Ratio 1.1 (1.1-1.8) 10/30/17 06:30 Lipase 36 U/L (23-300) 10/29/17 02:25 Vitamin B12 847 pg/mL (239-931) 10/29/17 08:45 Folate > 20.0 ng/mL 10/29/17 08:45 Venous Blood Potassium 3.6 mmol/L (3.6-5.2) 10/29/17 02:25 Urine Color Yellow (YELLOW) 10/29/17 02:34 Urine Appearance Sl cloudy (CLEAR) 10/29/17 02:34 Urine pH 6.0 (4.7-8.0) 10/29/17 02:34 Ur Specific [place] >= 1.030 (1.005-1.035) 10/29/17 02:34 Urine Protein 30 mg/dL (<30 mg/dL) H 10/29/17 02:34 Urine Glucose (UA) Negative mg/dL (NEGATIVE) 10/29/17 02:34 Urine Ketones 15 mg/dL (NEGATIVE) H 10/29/17 02:34 Urine Blood Small (NEGATIVE) H 10/29/17 02:34 Urine Nitrate Negative (NEGATIVE) 10/29/17 02:34 Urine Bilirubin Small (NEGATIVE) H 10/29/17 02:34 Urine Urobilinogen 0.2 E.U./dL (<1 E.U./dL) 10/29/17 02:34 Ur Leukocyte Esterase Moderate Tripp/uL (NEGATIVE) H 10/29/17 02:34 Urine RBC 5 - 10 /hpf (0-2) 10/29/17 02:34 Urine WBC Tntc /hpf (0-6) 10/29/17 02:34 Ur Epithelial Cells 3 - 4 /hpf (0-5) 10/29/17 02:34 Urine Bacteria Many (NEG) 10/29/17 02:34 Stool Leukocytes, Qual Negative (NEGATIVE) 10/29/17 17:28 Blood Type O POSITIVE 10/29/17 06:00 Blood Type Confirm O POSITIVE 10/29/17 08:45 Antibody Screen Negative 10/29/17 06:00 BBK History Checked No verified bt 10/29/17 06:00 - Hospital Course Hospital Course: Ms. Umanzor is a 47 yo AA female with PMH of hospitalization for ulcer in 1999, G ERD, depression, iron deficiency anemia who presents with a 3 day history of abdominal pain with nausea, vomiting and diarrhea. Pt described a 1 month history of diarrhea. In the ED, Abdominal CT showed Focally dilated pancreatic duct with atrophy of the pancreatic neck and proximal body. No discrete mass was seen. Abdominal CT also showed Indeterminate 1.7 cm right renal lesion and a 9 mm cystic density in the proximal urethra suspicious for a urethral diverticulum. UA was positive for UTI. Labs also showed normocytic anemia. MRCP did not show pancreatic duct dilatation. Patient was admitted and started on zofran for nausea, toradol for pain, rocephin for UTI, and Iron for anemia. GI was consulted and recommended stool studies and to follow up out patient for an endoscopy study. Patient's diet was advanced to soft, bland foods and was able to tolerate it. Pt was discharged with instructions to follow up with primary care physician and GI to have an endoscopy performed out-patient. She was instructed to take the following medications: klonopin (home), iron, percocet (home), protonix, seroquel (home), and vortioxetine. Discharge Exam - Head Exam Head Exam: ATRAUMATIC, NORMOCEPHALIC - Eye Exam Eye Exam: EOMI Pupil Exam: NORMAL ACCOMODATION - Respiratory Exam Respiratory Exam: Clear to PA & Lateral, NORMAL BREATHING PATTERN - Cardiovascular Exam Cardiovascular Exam: REGULAR RHYTHM, +S1, +S2 - GI/Abdominal Exam GI & Abdominal Exam: Normal Bowel Sounds, Tenderness - Extremities Exam Extremities exam: normal inspection - Neurological Exam Neurological exam: Alert, Oriented x3 - Psychiatric Exam Psychiatric exam: Normal Affect, Normal Mood - Skin Skin Exam: Normal Color Discharge Plan - Discharge Medications Prescriptions: Ferrous Sulfate [Feosol] 325 mg PO DAILY 14 Days tab Pantoprazole Sodium [Protonix] 40 mg PO BID 14 Days ect - Follow Up Plan Condition: FAIR Disposition: HOME/ ROUTINE Instructions: [place] Diet, Acute Abdomen (Belly Pain), Adult (DC), Quitting Smoking Additional Instructions: Please follow up with your primary care physician and Dr. Flores, gastroenterology within one week. Please take your medicines as prescribed. Please refrain from using tobacco or alcohol as it may worsen your condition. Please return to the ED if your symptoms worsen. Referrals: Gladys Ro MD [Primary Care Provider] - Chris Flores MD [Staff Provider] - <Jaylen Asencio - Last Filed: 11/01/17 15:08> Provider - Provider Date of Admission: 10/29/17 05:22 Attending physician: Jaylen Asencio MD Primary care physician: [facility] Course - Lab Results Lab Results: Micro Results 10/29/17 09:10 Blood-Venous Blood Culture - Preliminary NO GROWTH AFTER 3 DAYS 10/29/17 08:45 Blood-Venous Blood Culture - Preliminary NO GROWTH AFTER 3 DAYS 10/30/17 17:28 Stool Ova and Parasite Concentrate Exam - Final 10/29/17 02:34 Urine,Clean Catch Urine Culture - Final No Growth (<1,000 CFU/ML) Most Recent Lab Values WBC 3.9 10^3/ul (4.5-11.0) L 10/31/17 09:00 RBC 3.81 10^6/uL (3.5-6.1) 10/31/17 09:00 Hgb 10.4 g/dL (12.0-16.0) L 10/31/17 09:00 Hct 32.1 % (36.0-48.0) L 10/31/17 09:00 MCV 84.3 fl (80.0-105.0) 10/31/17 09:00 MCH 27.3 pg (25.0-35.0) 10/31/17 09:00 MCHC 32.4 g/dl (31.0-37.0) 10/31/17 09:00 RDW 16.2 % (11.5-14.5) H 10/31/17 09:00 Plt Count 283 10^3/uL (120.0-450.0) 10/31/17 09:00 MPV 8.3 fl (7.0-11.0) 10/31/17 09:00 Gran % 45.0 % (50.0-68.0) L 10/30/17 06:30 Lymph % (Auto) 45.6 % (22.0-35.0) H 10/30/17 06:30 [place] % (Auto) 7.8 % (1.0-6.0) H 10/30/17 06:30 Eos % (Auto) 1.1 % (1.5-5.0) L 10/30/17 06:30 Baso % (Auto) 0.5 % (0.0-3.0) 10/30/17 06:30 Gran # 1.96 (1.4-6.5) 10/30/17 06:30 Lymph # (Auto) 2.0 (1.2-3.4) 10/30/17 06:30 [place] # (Auto) 0.3 (0.1-0.6) 10/30/17 06:30 Eos # (Auto) 0.1 (0.0-0.7) 10/30/17 06:30 Baso # (Auto) 0.02 K/mm3 (0.0-2.0) 10/30/17 06:30 PT 11.7 SECONDS (9.4-12.5) 10/29/17 02:25 INR 1.03 10/29/17 02:25 APTT 26.8 Seconds (25.1-36.5) 10/30/17 06:30 pO2 42 mm/Hg (30-55) 10/29/17 02:25 VBG pH 7.33 (7.32-7.43) 10/29/17 02:25 VBG pCO2 55.0 (40-60) 10/29/17 02:25 VBG HCO3 29.0 mmol/l (21-28) H 10/29/17 02:25 VBG Total CO2 30.7 mmol.L (22-28) H 10/29/17 02:25 VBG O2 Sat (Calc) 72.4 % (40-65) H 10/29/17 02:25 VBG Base Excess 1.9 mmol/L (0.0-2.0) 10/29/17 02:25 VBG Potassium 3.6 mmol/L (3.6-5.2) 10/29/17 02:25 Sodium 140.0 mmol/L (132-148) 10/29/17 02:25 Chloride 107.0 mmol/L (98-107) 10/29/17 02:25 Glucose 102 mg/dl (65-105) 10/29/17 02:25 Lactate 1.0 mmol/L (0.7-2.1) 10/29/17 02:25 FiO2 21.0 % 10/29/17 02:25 Sodium 140 mmol/L (132-148) 10/31/17 09:00 Potassium 4.0 mmol/L (3.6-5.0) 10/31/17 09:00 Chloride 110 mmol/L (98-107) H 10/31/17 09:00 Carbon Dioxide 24 mmol/L (21-33) 10/31/17 09:00 Anion Gap 10 (10-20) 10/31/17 09:00 BUN 3 mg/dL (7-21) L 10/31/17 09:00 Creatinine 0.7 mg/dl (0.7-1.2) 10/31/17 09:00 Est GFR ( Amer) > 60 10/31/17 09:00 Est GFR (Non-Af Amer) > 60 10/31/17 09:00 Random Glucose 95 mg/dL (70-110) 10/31/17 09:00 Calcium 9.7 mg/dL (8.4-10.5) 10/31/17 09:00 Phosphorus 4.5 mg/dL (2.5-4.5) 10/30/17 06:30 Magnesium 1.9 mg/dL (1.7-2.2) 10/30/17 06:30 Iron 35 ug/dL (45-180) L 10/29/17 08:45 TIBC 373 ug/dL (265-497) 10/29/17 08:45 % Saturation 9 % (20-55) L 10/29/17 08:45 Ferritin 13.0 ng/mL 10/29/17 08:45 Total Bilirubin < 0.1 mg/dL (0.2-1.3) L 10/30/17 06:30 AST 38 U/L (14-36) H D 10/30/17 06:30 ALT 23 U/L (7-56) 10/30/17 06:30 Alkaline Phosphatase 47 U/L (38-126) 10/30/17 06:30 Total Protein 5.7 g/dL (5.8-8.3) L 10/30/17 06:30 Albumin 3.0 g/dL (3.0-4.8) 10/30/17 06:30 Globulin 2.8 gm/dL 10/30/17 06:30 Albumin/Globulin Ratio 1.1 (1.1-1.8) 10/30/17 06:30 Lipase 36 U/L (23-300) 10/29/17 02:25 Vitamin B12 847 pg/mL (239-931) 10/29/17 08:45 Folate > 20.0 ng/mL 10/29/17 08:45 Venous Blood Potassium 3.6 mmol/L (3.6-5.2) 10/29/17 02:25 Urine Color Yellow (YELLOW) 10/29/17 02:34 Urine Appearance Sl cloudy (CLEAR) 10/29/17 02:34 Urine pH 6.0 (4.7-8.0) 10/29/17 02:34 Ur Specific [place] >= 1.030 (1.005-1.035) 10/29/17 02:34 Urine Protein 30 mg/dL (<30 mg/dL) H 10/29/17 02:34 Urine Glucose (UA) Negative mg/dL (NEGATIVE) 10/29/17 02:34 Urine Ketones 15 mg/dL (NEGATIVE) H 10/29/17 02:34 Urine Blood Small (NEGATIVE) H 10/29/17 02:34 Urine Nitrate Negative (NEGATIVE) 10/29/17 02:34 Urine Bilirubin Small (NEGATIVE) H 10/29/17 02:34 Urine Urobilinogen 0.2 E.U./dL (<1 E.U./dL) 10/29/17 02:34 Ur Leukocyte Esterase Moderate Tripp/uL (NEGATIVE) H 10/29/17 02:34 Urine RBC 5 - 10 /hpf (0-2) 10/29/17 02:34 Urine WBC Tntc /hpf (0-6) 10/29/17 02:34 Ur Epithelial Cells 3 - 4 /hpf (0-5) 10/29/17 02:34 Urine Bacteria Many (NEG) 10/29/17 02:34 Stool Fat, Qual See note 10/29/17 17:28 Stool Leukocytes, Qual Negative (NEGATIVE) 10/29/17 17:28 Blood Type O POSITIVE 10/29/17 06:00 Blood Type Confirm O POSITIVE 10/29/17 08:45 Antibody Screen Negative 10/29/17 06:00 BBK History Checked No verified bt 10/29/17 06:00 Attending/Attestation - Attestation I have personally seen and examined this patient.: Yes I have fully participated in the care of the patient.: Yes I have reviewed all pertinent clinical information, including history, physical exam and plan: Yes Notes (Text): 10/31/17 47 year old female with past medical history of ulcer, iron deficiency anemia and GERD who presented with complaint of abdominal pain, nausea, vomiting and diarrhea. CT abd/pelvis showed focally dilated pancreatic duct with atrophy of the pancreatic neck and proximal bodyy. This was followed up with MRCP which did not show pancreatic duct dilatation. Patient's symptoms improved and her diet was advanced which she tolerated. GI recommended outpatient follow up. She was also treated for UTI. CT/renal US also showed renal cyst, fibroid uterus, adnexal mass. Findings were discussed with patient. Recommended outpatient follow up with pmd and phy therapist. Patient is discharged home to follow up with pmd, GI and gynecology. Jaylen Asencio MD Hospitalist.
== END 2017-10-31 17:07 | disposition home or self-care (01) ==
LOC: ED 21:12 → INTOOBSV 10-29 05:22 → ERH 10-29 05:22 → 3RNO 10-29 08:45
PROVIDERS: ADMIT Internal Medicine; ATTEND Internal Medicine
DX: N39.0 Urinary tract infection, site not specified (principal); D25.9 Leiomyoma of uterus, unspecified; D50.9 Iron deficiency anemia, unspecified; K86.89 Other specified diseases of pancreas; R11.2 Nausea with vomiting, unspecified; R19.7 Diarrhea, unspecified; F17.210 Nicotine dependence, cigarettes, uncomplicated; F32.9 Major depressive disorder, single episode, unspecified; K21.9 Gastro-esophageal reflux disease without esophagitis; N28.9 Disorder of kidney and ureter, unspecified; Z87.11 Personal history of peptic ulcer disease; Z82.49 Family history of ischemic heart disease and other diseases of the circulatory system; Z83.2 Family history of diseases of the blood and blood-forming organs and certain disorders involving the immune mechanism
CPT/HCPCS: 36415; 74177; 74183; 76770; 80048; 80053; 81001; 82438; 82607; 82705; 82728; 82746; 82803; 83540; 83550; 83631; 83690; 83735; 83993; 84100; 84302; 84311; 85025; 85027; 85610; 85730; 86850; 86900; 87040; 87045; 87086; 87177; 87209; 89055; 93005; 96361; 96365; 96367; 96375; 96376; 99285; A9579; C9113; G0378; J0696; J1885; J2270; J2405; J7030; Q9966; Q9967